=== PATIENT | female | born 1965 | race Caucasian/White ===

== ENCOUNTER → 2017-12-25 | Outpatient (CLI) | payer OTHER | LOC: M.ULTRA 10:11 | DX: M79.89 Other specified soft tissue disorders (principal); M79.662 Pain in left lower leg; E66.9 Obesity, unspecified ==

== ENCOUNTER 2021-06-22 08:03 | Emergency (ER) | payer OTHER ==
[~2021-06-22] VITALS: Ht 157.5 cm; Wt 112.5 kg
[2021-06-22 08:10] VITALS: BP 145/88
[2021-06-22] MEDS ORDERED: LIPITOR10 MG PO (08:19)
[2021-06-22] MEDS ORDERED: BUSPIRONE HCL15 MG PO (08:19)
[2021-06-22] MEDS ORDERED: BENICAR20 MG PO (08:19)
[2021-06-22] MEDS ORDERED: CYMBALTA60 MG PO (08:19)
[2021-06-22] MEDS ORDERED: AMOXICILLIN 50500 MG PO (09:05)
[2021-06-22] MEDS ORDERED: CORTISPORIN OTI10 M2 OTIC (09:05)
== END 2021-06-22 09:12 | disposition home or self-care (01) ==
LOC: M.ERS 08:03
DX: H66.92 Otitis media, unspecified, left ear (principal); H61.23 Impacted cerumen, bilateral; J01.90 Acute sinusitis, unspecified; F41.9 Anxiety disorder, unspecified; F32.9 Major depressive disorder, single episode, unspecified; I10 Essential (primary) hypertension; Z79.899 Other long term (current) drug therapy; Z90.89 Acquired absence of other organs